=== PATIENT | male | born 1990 | race Caucasian/White ===

== ENCOUNTER 2021-11-18 21:06 | Emergency (ER) | payer BC ==
[~2021-11-18] VITALS: Ht 172.7 cm; Wt 93.0 kg
[~2021-11-18 21:06] MED LIST: CRUTCH4 USE; HYDACE5 PO; IBUP400; MONT10T; Miralax17 GM PO; NAPR375 PO; OMEP40CA12 PO; ONDA4ODT MM
[2021-11-18] MEDS ORDERED: AMLO5 (21:23)
[2021-11-18] MEDS ORDERED: LOSA50 (21:23)
[2021-11-18] MEDS ORDERED: SULTRISS PO (23:07)
[2021-11-18] MEDS ORDERED: CEPH500 PO (23:07)
== END 2021-11-18 23:36 | disposition home or self-care (01) ==
LOC: ER 21:06
DX: L03.115 Cellulitis of right lower limb (principal); I10 Essential (primary) hypertension; F17.220 Nicotine dependence, chewing tobacco, uncomplicated; Z79.899 Other long term (current) drug therapy
CPT/HCPCS: 73600; 93971; A9270